=== PATIENT | male | born 1995 | race Caucasian/White ===

== ENCOUNTER 2020-02-10 23:08 | Observation (INO) | payer BC ==
--- OUTSIDE RECORDS SUMMARY | 2020-02-10 23:10 | XMS REPORT | Continuity of Care Document ---
:1995 [facility] t Address [address] [place] [address] Dr. Caldera [address] [place] [id number] Care Team Providers Name Role Phone Unavailable Unavailable Unavailable Problems This patient has no known problems. Allergies, Adverse Reactions, Alerts This patient has no known allergies or adverse reactions. Medications This patient has no known medications. Procedures This patient has no known procedures. Results This patient has no known results.
--- NOTE | 2020-02-11 00:07 | ER ---
Nurse's Notes [facility] Name: Jose A Vasquez Age: 24 yrs Sex: Male : 1995 Arrival Date: 02/10/2020 Time: 23:13 Bed 16 Private MD: Diagnosis: Cellulitis and acute lymphangitis of other parts of limb-lower extremity cellulitis, extensive;Fever, unspecified;Edema, unspecified;Elevated white blood cell count Presentation: 02/09 23:21 Chief complaint: Patient states: Left groin pain, and left foot swelling with redness, sg reports symptoms started around 0800 this morning after jumping up to the bed from a standing position. pt reports having swelling in the left foot that is chronic, has had ultrasound last year to r/o dvt, was negative. Coronavirus screen: Client denies travel out of the [place] in the last 14 days. At this time, the client does not indicate any symptoms associated with coronavirus-19. Ebola Screen: Patient negative for fever greater than or equal to 101.5 degrees Fahrenheit, and additional compatible Ebola Virus Disease symptoms Patient denies exposure to infectious person. Patient denies travel to an Ebola-affected area in the 21 days before illness onset. No symptoms or risks identified at this time. Initial Sepsis Screen: Does the patient meet any 2 criteria? No. Patient's initial sepsis screen is negative. Does the patient have a suspected source of infection? No. Patient's initial sepsis screen is negative. Risk Assessment: Do you want to hurt yourself or someone else? Patient reports no desire to harm self or others. Onset of symptoms was February 10, 2020. Care prior to arrival: None. Transition of care: patient was not received from another setting of care. 23:21 Acuity: PARAMJIT 3 sg 23:21 Method Of Arrival: Wheelchair sg Historical: - Allergies: 23:24 Anesthetics - Mary Type; sg - Home Meds: 23:24 None [Active]; sg - PMHx: 23:24 None; sg - PSHx: 23:24 None; sg - Immunization history:: Adult Immunizations up to date. - Social history:: Smoking status: Patient denies any tobacco usage or history of. - Family history:: not pertinent. Screenin:47 Abuse screen: Denies threats or abuse. Denies injuries from another. Nutritional mg2 screening: No deficits noted. Tuberculosis screening: No symptoms or risk factors identified. Fall Risk None identified. Assessment: 23:45 General: Appears in no apparent distress. comfortable, Behavior is calm, cooperative. mg2 Pain: Complains of pain in left leg. Neuro: Level of Consciousness is awake, alert, obeys commands, Oriented to person, place, time, situation. Cardiovascular: Capillary refill < 3 seconds Patient's skin is warm and dry. Respiratory: Airway is patent Respiratory effort is even, unlabored, Respiratory pattern is regular, symmetrical. GI: No signs and/or symptoms were reported involving the gastrointestinal system. : No signs and/or symptoms were reported regarding the genitourinary system. EENT: No signs and/or symptoms were reported regarding the EENT system. Derm: redness in the left leg. Musculoskeletal: Circulation, motion, and sensation intact. Capillary refill < 3 seconds, Swelling present in left leg. 02/10 00:25 Reassessment: patient advised for admission and he agreed. seen by hospitalist on duty. mg2 00:58 Reassessment: patient to be shifted to the floor after ultrasound. mg2 02:58 Reassessment: Patient is alert, oriented x 3, equal unlabored respirations, skin ea warm/dry/pink. Pt admitted to second floor, pt left ED via stretcher per ED nurse. Pt tolerating well. Vital Signs: 02/09 23:21 BP 107 / 68; Pulse 108; Resp 18; Pulse Ox 99% on R/A; Weight 112.94 kg (R); Height 6 sg ft. 0 in. (182.88 cm); 23:45 Pulse 117; Temp 101(O); mg2 02/10 01:10 BP 108 / 52; Pulse 108; Resp 18; Temp 101; Pulse Ox 97% on R/A; Pain 5/10; mg2 02/09 23:21 Body Mass Index 33.77 (112.94 kg, 182.88 cm) sg ED Course: 02/09 23:13 Patient arrived in ED. am2 23:17 Jacob Carroll MD is Attending Physician. evy 23:24 Triage completed. sg 23:25 Arm band placed on. sg 23:31 Andres Velez, JAYNE is Primary Nurse. mg2 23:47 Patient has correct armband on for positive identification. Door closed. mg2 23:47 No provider procedures requiring assistance completed. mg2 23:50 Inserted saline lock: 20 gauge in left antecubital area, using aseptic technique. Blood mg2 collected. 02/10 00:04 Kenyon Krishnamurthy DO is Hospitalizing Provider. evy 00:30 Chest Single View XRAY In Process Unspecified. EDMS 00:58 Patient admitted, IV remains in place. mg2 Administered Medications: 00:10 Drug: Tylenol 1000 mg Route: PO; mg2 01:09 Follow up: Response: No adverse reaction mg2 00:14 Drug: morphine 2 mg Route: IVP; Site: left antecubital; mg2 01:09 Follow up: Response: No adverse reaction; Marked relief of symptoms; RASS: Alert and mg2 Calm (0) 00:14 Drug: NS 0.9% 1000 ml Route: IV; Rate: 1 bolus; Site: left antecubital; mg2 01:08 Follow up: Response: No adverse reaction; IV Status: Completed infusion; IV Intake: mg2 1000ml 00:14 Drug: Zosyn 3.375 grams Route: IVPB; Infused Over: 60 mins; Site: left antecubital; mg2 01:08 Follow up: Response: No adverse reaction; IV Status: Completed infusion; IV Intake: mg2 100ml 00:15 Drug: Zofran (Ondansetron) 4 mg Route: IVP; Site: left antecubital; mg2 01:09 Follow up: Response: No adverse reaction mg2 00:25 Drug: Lovenox 100 mg Route: Sub-Q; Site: left lower abdomen; mg2 01:09 Follow up: Response: No adverse reaction mg2 00:25 Drug: Pepcid 20 mg Route: IVP; Site: left antecubital; mg2 01:09 Follow up: Response: No adverse reaction mg2 01:08 Drug: NS 0.9% 1000 ml Route: IV; Rate: 1 bolus; Site: left antecubital; mg2 01:08 Drug: vancoMYCIN 2 grams Route: IVPB; Rate: calculated rate; Site: left antecubital; mg2 01:15 Drug: morphine 2 mg Route: IVP; Site: left antecubital; mg2 Intake: 01:08 IV: 1000ml; Total: 1000ml. mg2 01:08 IV: 100ml; Total: 1100ml. mg2 Outcome: 00:06 Decision to Hospitalize by Provider. evy 02:21 Admitted to [facility] by tech, via wheelchair, room 429, with chart, Report mg2 called to JAYNE Arceo 02:21 Condition: stable 02:21 Instructed on the need for admit, Demonstrated understanding of instructions. 02:58 Patient left the ED. braxton Signatures: Dispatcher [employer] EDMS Deepak Mendoza, RN RN Jacob Parham MD MD cha Moreno, Amanda am2 Lorna Walsh RN RN ea Gardose, Michele, RN RN mg2
--- NOTE | 2020-02-11 00:07 | EDPHYS ---
Physician Documentation [facility] Name: Jose A Vasquez Age: 24 yrs Sex: Male : 1995 Arrival Date: 02/10/2020 Time: 23:13 Bed 16 Private MD: LUIS Physician Jacob Carroll HPI: 02/09 23:53 This 24 yrs old Male presents to ER via Wheelchair with complaints of Leg evy Pain, Foot Pain. 23:53 The patient presents with decreased range of motion, pain, swelling, tenderness. The evy complaints affect the lateral aspect of left calf, left lateral ankle, lateral aspect of left foot, medial aspect of left calf, left medial ankle, medial aspect of left foot, left rivas, anterior aspect of left ankle and dorsum of left foot. Context: The problem was sustained at home, resulted from an unknown cause, the patient can fully bear weight, the patient is able to ambulate. Onset: The symptoms/episode began/occurred this morning, today. Modifying factors: The symptoms are alleviated by elevating leg, remaining still, the symptoms are aggravated by movement, weight bearing, bending knee. Associated signs and symptoms: Pertinent positives: swelling, warmth, of the lateral aspect of left calf, left lateral ankle, lateral aspect of left foot, medial aspect of left calf, left medial ankle, medial aspect of left foot, left rivas, anterior aspect of left ankle and dorsum of left foot. Treatment prior to arrival includes: no previous treatment. Severity of symptoms: At their worst the symptoms were moderate, in the emergency department the symptoms are unchanged. The patient has not experienced similar symptoms in the past. Historical: - Allergies: 23:24 Anesthetics - Mary Type; sg - Home Meds: 23:24 None [Active]; sg - PMHx: 23:24 None; sg - PSHx: 23:24 None; sg - Immunization history:: Adult Immunizations up to date. - Social history:: Smoking status: Patient denies any tobacco usage or history of. - Family history:: not pertinent. ROS: 23:53 Eyes: Negative for injury, pain, redness, and discharge, ENT: Negative for injury, evy pain, and discharge, Neck: Negative for injury, pain, and swelling, Cardiovascular: Negative for chest pain, palpitations, and edema, Respiratory: Negative for shortness of breath, cough, wheezing, and pleuritic chest pain, Abdomen/GI: Negative for abdominal pain, nausea, vomiting, diarrhea, and constipation, Back: Negative for injury and pain, : Negative for injury, bleeding, discharge, and swelling, Neuro: Negative for headache, weakness, numbness, tingling, and seizure, Psych: Negative for depression, anxiety, suicide ideation, homicidal ideation, and hallucinations, Allergy/Immunology: Negative for hives, rash, and allergies, Endocrine: Negative for neck swelling, polydipsia, polyuria, polyphagia, and marked weight changes. 23:53 MS/extremity: Positive for erythema, pain, swelling, tenderness, of the left leg. Exam: 23:53 Constitutional: This is a well developed, well nourished patient who is awake, alert, evy and in no acute distress. Head/Face: Normocephalic, atraumatic. Eyes: Pupils equal round and reactive to light, extra-ocular motions intact. Lids and lashes normal. Conjunctiva and sclera are non-icteric and not injected. Cornea within normal limits. Periorbital areas with no swelling, redness, or edema. ENT: Nares patent. No nasal discharge, no septal abnormalities noted. Tympanic membranes are normal and external auditory canals are clear. Oropharynx with no redness, swelling, or masses, exudates, or evidence of obstruction, uvula midline. Mucous membranes moist. Neck: Trachea midline, no thyromegaly or masses palpated, and no cervical lymphadenopathy. Supple, full range of motion without nuchal rigidity, or vertebral point tenderness. No Meningismus. Chest/axilla: Normal chest wall appearance and motion. Nontender with no deformity. No lesions are appreciated. Respiratory: Lungs have equal breath sounds bilaterally, clear to auscultation and percussion. No rales, rhonchi or wheezes noted. No increased work of breathing, no retractions or nasal flaring. Abdomen/GI: Soft, non-tender, with normal bowel sounds. No distension or tympany. No guarding or rebound. No evidence of tenderness throughout. Back: No spinal tenderness. No costovertebral tenderness. Full range of motion. Male : Normal genitalia with no discharge or lesions. Neuro: Awake and alert, GCS 15, oriented to person, place, time, and situation. Cranial nerves II-XII grossly intact. Motor strength 5/5 in all extremities. Sensory grossly intact. Cerebellar exam normal. Normal gait. Psych: Awake, alert, with orientation to person, place and time. Behavior, mood, and affect are within normal limits. 23:53 Cardiovascular: Rate: tachycardic, Rhythm: regular, Pulses: Pulses are 4+ in bilateral radial, brachial, femoral, popliteal, posterior tibial and and dorsalis pedis arteries.. Heart sounds: normal, Edema: is not appreciated, JVD: is not appreciated. 23:53 Skin: Appearance: Color: normal in color, Temperature: normal temperature, Moisture: normal moisture, petechiae, not noted, ecchymosis, not noted, flushing, not noted, diaphoresis is not appreciated, cellulitis, that is moderate, confluent, well demarcated, on the lateral aspect of left calf, left lateral ankle, lateral aspect of left foot, medial aspect of left calf, left medial ankle, medial aspect of left foot, left rivas, anterior aspect of left ankle and dorsum of left foot. Vital Signs: 23:21 BP 107 / 68; Pulse 108; Resp 18; Pulse Ox 99% on R/A; Weight 112.94 kg (R); Height 6 sg ft. 0 in. (182.88 cm); 23:45 Pulse 117; Temp 101(O); mg2 02/10 01:10 BP 108 / 52; Pulse 108; Resp 18; Temp 101; Pulse Ox 97% on R/A; Pain 5/10; mg2 02/09 23:21 Body Mass Index 33.77 (112.94 kg, 182.88 cm) sg MDM: 02/09 23:17 Patient medically screened. evy 23:58 Differential diagnosis: abrasion. Data reviewed: vital signs, nurses notes, lab test evy result(s), radiologic studies, doppler, plain films. 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 rate is 117 beats/min, rhythm is regular, Pulse oximetry: on room air is 99 %. Test interpretation: by ED physician or midlevel provider: plain radiologic studies. Counseling: I had a detailed discussion with the patient and/or guardian regarding: the historical points, exam findings, and any diagnostic results supporting the discharge/admit diagnosis, lab results, the need for further work-up and treatment in the hospital. ED course: extensive cellulitis to left lower extremity, fever and pain. 02/09 23:53 Order name: CBC with Diff [facility] 02/09 23:53 Order name: Comprehensive Metabolic Panel; Complete Time: 00:55 [facility] 02/09 23:53 Order name: Blood Culture Adult (2) [facility] 02/09 23:53 Order name: Procalcitonin [facility] 02/09 23:53 Order name: Lactate; Complete Time: 00:55 [facility] 02/10 01:24 Order name: Manual Differential EDMS 02/09 23:53 Order name: US Extremity Venous W Compression Kirby [facility] 02/09 23:53 Order name: Chest Single View XRAY [facility] Administered Medications: 02/10 00:10 Drug: Tylenol 1000 mg Route: PO; mg2 01:09 Follow up: Response: No adverse reaction mg2 00:14 Drug: morphine 2 mg Route: IVP; Site: left antecubital; mg2 01:09 Follow up: Response: No adverse reaction; Marked relief of symptoms; RASS: Alert and mg2 Calm (0) 00:14 Drug: NS 0.9% 1000 ml Route: IV; Rate: 1 bolus; Site: left antecubital; mg2 01:08 Follow up: Response: No adverse reaction; IV Status: Completed infusion; IV Intake: mg2 1000ml 00:14 Drug: Zosyn 3.375 grams Route: IVPB; Infused Over: 60 mins; Site: left antecubital; mg2 01:08 Follow up: Response: No adverse reaction; IV Status: Completed infusion; IV Intake: mg2 100ml 00:15 Drug: Zofran (Ondansetron) 4 mg Route: IVP; Site: left antecubital; mg2 : Follow up: Response: No adverse reaction mg2 00:25 Drug: Lovenox 100 mg Route: Sub-Q; Site: left lower abdomen; mg2 01:09 Follow up: Response: No adverse reaction mg2 00:25 Drug: Pepcid 20 mg Route: IVP; Site: left antecubital; mg2 01: Follow up: Response: No adverse reaction mg2 01:08 Drug: NS 0.9% 1000 ml Route: IV; Rate: 1 bolus; Site: left antecubital; mg2 01:08 Drug: vancoMYCIN 2 grams Route: IVPB; Rate: calculated rate; Site: left antecubital; mg2 01:15 Drug: morphine 2 mg Route: IVP; Site: left antecubital; mg2 Disposition: 02/11/20 00:06 Hospitalization ordered by Kenyon Krishnamurthy for Inpatient Admission. Preliminary diagnosis are Cellulitis and acute lymphangitis of other parts of limb - lower extremity cellulitis, extensive, Fever, unspecified, Edema, unspecified, Elevated white blood cell count. - Bed requested for Telemetry/MedSurg (Inpatient). - Status is Inpatient Admission. ea - Condition is Fair. - Problem is new. - Symptoms have improved. Signatures: Dispatcher [employer] EDDeepak Thomas RN RN sg Anderson, Corey, MD MD cha Attema, Lee, ASSOCIATE FINANCIAL ANALYST-C ASSOCIATE FINANCIAL ANALYST-Cla1 Lorna Walsh RN RN ea Gardose, Michele, RN RN mg2 Corrections: (The following items were deleted from the chart) 00:13 00:06 Hospitalization Ordered by Kenyon Krishnamurthy DO for Inpatient Admission. Preliminary sg diagnosis is Cellulitis and acute lymphangitis of other parts of limb - lower extremity cellulitis, extensive; Fever, unspecified; Edema, unspecified. Bed requested for Telemetry/MedSurg (Inpatient). Status is Inpatient Admission. Condition is Fair. Problem is new. Symptoms have improved. [facility] 00:56 00:13 02/11/2020 00:06 Hospitalization Ordered by Kenyon Krishnamurthy DO for Inpatient evy Admission. Preliminary diagnosis is Cellulitis and acute lymphangitis of other parts of limb - lower extremity cellulitis, extensive; Fever, unspecified; Edema, unspecified. Bed requested for Telemetry/MedSurg (Inpatient). Status is Inpatient Admission. Condition is Fair. Problem is new. Symptoms have improved. 02:58 00:56 02/11/2020 00:06 Hospitalization Ordered by Kenyon Krishnamurthy DO for Inpatient ea Admission. Preliminary diagnosis is Cellulitis and acute lymphangitis of other parts of limb - lower extremity cellulitis, extensive; Fever, unspecified; Edema, unspecified; Elevated white blood cell count. Bed requested for Telemetry/MedSurg (Inpatient). Status is Inpatient Admission. Condition is Fair. Problem is new. Symptoms have improved. evy
[2020-02-11] MEDS ORDERED: ONDANSETRON 4 MG/2 ML VIAL ONE (00:13)
[2020-02-11] MEDS ORDERED: PIPER/TAZO/NS 3.375gm 3.375 GM/100 ML BAG ONE (00:13)
[2020-02-11] MEDS ORDERED: NA CHLORIDE 0.9% 250 ML ONE ×2 (00:13→00:28)
[2020-02-11] MEDS ORDERED: ACETAMINOPHEN 500 MG TAB ONE (00:13)
[2020-02-11] MEDS ORDERED: VANCOMYCIN 1 GM/VIAL ONE ×3 (00:13→00:28)
[2020-02-11] MEDS ORDERED: NA CHLORIDE 0.9% 1,000 ML ONE ×2 (00:13→00:28)
[2020-02-11] MEDS ORDERED: MORPHINE 2 MG/ML SYR ONE ×2 (00:13→01:24)
[2020-02-11] MEDS ORDERED: ENOXAPARIN 100 MG/ML SYR SQ ONE (00:28)
[2020-02-11] MEDS ORDERED: FAMOTIDINE 20 MG/2 ML VIAL IV ONE (00:29)
[2020-02-11 00:32] LABS: Absolute Lymphocytes (CBC) 0.8 K/uL (0.7-4.9); Basophils % 0.4 % (0-1.3); Hematocrit 43.8 % (39.6-49.0); Lymphocytes % 4.2 % (15.3-44.8); RBC Red Blood Cell Count 5.11 M/uL (4.33-5.43)
--- NOTE | 2020-02-11 00:38 | P.HP ---
Certification for Inpatient Patient admitted to: Observation With expected LOS: <2 Midnights Patient will require the following post-hospital care: None Practitioner: I am a practitioner with admitting privileges, knowledge of patient current condition, hospital course, and medical plan of care. Services: Services provided to patient in accordance with Admission requirements found in Title 42 Section 412.3 of the Code of Federal Regulations Patient History Date of Service: 02/11/20 Reason for admission: Left lower extremity cellulitis History of Present Illness: 24-year-old male with no significant medical history other then chronic left lower extremity swelling presents emergency department for left lower extremity pain, redness, swelling. Patient reports that this morning he noticed that he is having some pain in his left groin knee. Patient then noticed that he is beginning to develop some redness over the dorsum of his left foot and his left calf/rivas area. Patient presented to the emergency department for evaluation of redness, swelling, pain. Patient reports that he has had the swelling to left lower extremity for approximately 2 years but it has gotten worse over the course of the last day. Patient reports having ultrasound approximately 1 year ago to rule out DVT which was negative. Patient was febrile, tachycardic in the emergency department. ED provider wishes to admit patient for further evaluation and management. When I saw the patient in the emergency department he was awake, alert, oriented x4 Patient was tachycardic around 110 with fever of 101 but blood pressure was normal. No signs of end-organ damage at this time. 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 moist/pink Neck: Supple Cardiovascular: Normal pulses, Regular rate/rhythm, Normal S1 S2 Capillary refill: <2 Seconds Gastrointestinal: Normal bowel sounds, Soft and benign Musculoskeletal: Swelling (Left lower extremity), Erythema, Tenderness Integumentary: Erythema, Warmth (Left lower extremity) Neurological: Normal gait, Normal speech, Normal strength at 5/5 x4 extr, Normal tone, Sensation intact Assessment and Plan - Plan Assessment Sepsis secondary to left lower extremity cellulitis Plan Sepsis secondary to left lower extremity cellulitis: Patient febrile and tachycardic without hypotension or signs of end-organ damage. Patient start on broad-spectrum antibiotics in the emergency department and given IV fluid bolus, blood cultures obtained. Ultrasound left lower extremity obtained in the emergency department which was negative. Will repeat CBC, basic with morning labs. DVT prophylaxis Lovenox 40 mg subcutaneous once daily. Anticipate clinical improvement next 24-48 hr. Discharge Plan: Home Plan to discharge in: 48 Hours - Advance Directives Does patient have a Living Will: No Does patient have a Durable POA for Healthcare: No - Code Status/Comfort Care Code Status Assessed: Yes (Patient is full code) Critical Care: No Time Spent Managing Pts Care (In Minutes): 55
[2020-02-11 00:39] LABS: Albumin 3.7 g/dL (3.4-5.0); Bilirubin Total 1.1 mg/dL (0.2-1.0); Potassium 3.8 mmol/L (3.5-5.1); Protein, Total 6.8 g/dL (6.4-8.2)
[2020-02-11 01:23] LABS: Blood Morphology Comment NOT SEEN (NOT SEEN); Platelet Estimate ADEQ
[2020-02-11] MEDS ORDERED: POTASSIUM CL SA 10 MEQ TAB PO ONE (02:52)
[2020-02-11] MEDS ORDERED: TRAMADOL HCL 50 MG TAB PO PRN (02:52)
[2020-02-11] MEDS ORDERED: ACETAMINOPHEN 500 MG TAB PO PRN (02:52)
[2020-02-11] MEDS ORDERED: ONDANSETRON 4 MG/2 ML VIAL IV PRN (02:52)
[2020-02-11] MEDS: NA CHLORIDE 0.9% 1,000 ML IV SCH ×3 (02:52→20:51)
[2020-02-11] MEDS ORDERED: VANCOMYCIN/NS 1 gm 1 GM/250 ML BAG IVPB SCH (03:00)
[2020-02-11 03:06] VITALS: BMI 33.5
[2020-02-11] MEDS: HYDROCODONE/APAP 7.5/325 MG TAB PO PRN ×4 (03:07→20:32)
--- NOTE | 2020-02-11 05:37 | P.INFCA ---
Sepsis Focused Assessment - Focused Assessment Complete? Sepsis Focused Assessment Completed?: Yes - Sepsis Screen Result Severe Sepsis: Negative Septic Shock: Negative - Evaluation Current stage of sepsis: Ruled out Reason for ruling out sepsis: Tachycardia/fever - Vital Signs Reviewed: Yes Respiratory Rate: 18 O2 Sat by Pulse Oximetry: 98 - Examination Time exam was performed: 04:00 Heart: Regular rate/rhythm Lungs: Clear bilaterally Peripheral pulses: 3+ Normal Peripheral pulse location: Radial Capillary refill: <2 Seconds Skin examination: Normal turgor
--- NOTE | 2020-02-11 06:57 | RAD REPORT ---
EXAM DESCRIPTION: US - Extrem Venous W Compress Kirby - 02/11/2020 2:41 am CLINICAL HISTORY: Pain;Swelling COMPARISON: None. TECHNIQUE: Real-time sonographic evaluation of the bilateral lower extremity common femoral, superfi cial femoral, popliteal and posterior tibial veins was performed. FINDINGS: Normal compressibility, flow augmentation, phasic flow and spontaneous flow are identified in the left and right lower extremity common femoral, superficial femoral, popliteal and posterior t ibial veins. No intraluminal filling defects seen. IMPRESSION: No DVT in either lower extremity.
--- NOTE | 2020-02-11 07:16 | RAD REPORT ---
EXAM DESCRIPTION: RAD - Chest Single View - 02/11/2020 12:29 am CLINICAL HISTORY: FEVER COMPARISON: None TECHNIQUE: AP portable chest image was obtained 02/11/2020 12:29 am . FINDINGS: Lungs are clear. Heart and vasculature are normal. No measurable pleural effusion and no p neumothorax. No acute bony abnormality seen. No acute aortic findings suspected. IMPRESSION: No acute cardiopulmonary process.
[2020-02-11] MEDS ORDERED: CEFEPIME 1 GM/VIAL IV SCH (09:00)
[2020-02-11 09:09] LABS: Thyroid Stimulating Hormone 1.5 uIU/mL (0.360-3.740)
--- NOTE | 2020-02-11 09:23 | RAD REPORT ---
EXAM DESCRIPTION: RAD - Tib Fib Left - 02/11/2020 9:07 am CLINICAL HISTORY: Cellulitis, leg pain, possible foreign body COMPARISON: None. FINDINGS: No fracture is identified. There is no dislocation or periosteal reaction noted. No acute or suspicious bony finding. No air or foreign body. Soft tissue edema is evident. IMPRESSION: No air or foreign body in the soft tissues.
--- NOTE | 2020-02-11 09:24 | RAD REPORT ---
EXAM DESCRIPTION: RAD - Foot Left 3 View - 02/11/2020 9:08 am CLINICAL HISTORY: cellulitis rule out foreign body COMPARISON: No comparisons FINDINGS: No fracture, dislocation or periosteal reaction. No acute or destructive bony process. Prominent soft tissue swelling over the dorsum of the foot with less prominent soft tissue swelling e lsewhere. No air or foreign body. IMPRESSION: Left foot soft tissue swelling with no foreign body.
--- NOTE | 2020-02-11 09:24 | RAD REPORT ---
EXAM DESCRIPTION: RAD - Ankle Left 2 View - 02/11/2020 9:07 am CLINICAL HISTORY: cellulitis rule out foreign body COMPARISON: No comparisons FINDINGS: No fracture, dislocation or periosteal reaction. No joint effusion seen. No joint space na rrowing. Soft tissue swelling is present. No air or foreign body. IMPRESSION: Soft tissue swelling with no foreign body left ankle.
[2020-02-11] MEDS: ENOXAPARIN 40 MG/0.4 ML SQ SCH (09:35)
[2020-02-11] MEDS: CEFEPIME/SWI 1gm 10 ML IV SCH ×2 (09:35→20:31)
[2020-02-11] MEDS: VANCOMYCIN 2 GM in NA CHLORIDE 0.9% 500 ML IVPB SCH (13:54)
[2020-02-12] MEDS: VANCOMYCIN 2 GM in NA CHLORIDE 0.9% 500 ML IVPB SCH ×2 (00:21→13:14)
[2020-02-12] MEDS: HYDROCODONE/APAP 7.5/325 MG TAB PO PRN ×2 (00:21→05:10)
[2020-02-12 03:59] LABS: Absolute Lymphocytes (CBC) 1.4 K/uL (0.7-4.9); Basophils % 0.3 % (0-1.3); Lymphocytes % 17.1 % (15.3-44.8); MPV 7.8 fL (7.6-11.3); RBC Red Blood Cell Count 4.39 M/uL (4.33-5.43)
[2020-02-12 04:34] LABS: BUN Blood Urea Nitrogen 12 mg/dL (7-18); Bicarbonate 28 mmol/L (21-32); Glucose Level 100 mg/dL (74-106); Potassium 4.3 mmol/L (3.5-5.1); Sodium Level 140 mmol/L (136-145)
[2020-02-12] MEDS: ENOXAPARIN 40 MG/0.4 ML SQ SCH (07:46)
[2020-02-12] MEDS: CEFEPIME/SWI 1gm 10 ML IV SCH ×2 (07:47→21:34)
[2020-02-12 08:57] VITALS: O2SAT 99
--- NOTE | 2020-02-12 13:08 | P.PN ---
Subjective Date of Service: 02/12/20 Primary Care Provider: None Chief Complaint: Left lower extremity cellulitis Subjective: Improving (Improved. Patient had fever yesterday at 101.8) Physical Examination - Vital Signs Temperature: 98.6 F Blood Pressure: 121/59 Pulse: 86 Respirations: 18 Pulse Ox (%): 98 - Physical Exam General: Alert, In no apparent distress, Oriented x3, Cooperative HEENT: Atraumatic Neck: Supple Respiratory: Clear to auscultation bilaterally, Normal air movement Cardiovascular: Normal pulses, Regular rate/rhythm Integumentary: Other (Erythema and swelling to the left lower extremity improved. Still noticeable swelling to the foot and ankle region. Some pain with walking.) Neurological: Normal speech, Normal strength at 5/5 x4 extr, Normal tone, Normal affect - Studies Medications List Reviewed: Yes Assessment & Plan Discharge Plan: Home Plan to discharge in: 24 Hours Physician Review Additional Text: Assessment Left lower extremity cellulitis Plan Left lower extremity cellulitis: Sepsis ruled out. Blood cultures negative. Will obtain echocardiogram today. Venous Doppler negative. Continue IV antibiotic therapy. Will continue to reassess. Encourage ambulation. Encourage to elevate leg when sitting or lying. Would like to see patient without fever for at least 24 hr to consider discharge. Will reassess later. If significantly improved will consider discharge later today. Time Spent Managing Pts Care (In Minutes): 55
--- NOTE | 2020-02-12 14:43 | ECHO ---
HEIGHT: 6 ft 0 in WEIGHT: 247 lb 0 oz DATE OF STUDY: 02/12/[address]: Kenyon Krishnamurthy DO 2-DIMENSIONAL: YES M.MODE: YES DOPPLER: YES COLOR FLOW: YES TDS: PORTABLE: DEFINITY: BUBBLE STUDY: DIAGNOSIS: CELLULITIS ETIOLOGY UNKNOWN, RULE OUT INFECTION CARDIAC HISTORY: CATHERIZATION: NO SURGERY: NO PROSTHETIC VALVE: NO PACEMAKER: NO MEASUREMENTS (cm) DIASTOLIC (NORMALS) SYSTOLIC (NORMALS) IVSd 1.0 (0.6-1.2) LA Diam 3.5 (1.9-4.0) LVEF 67% LVIDd 4.6 (3.5-5.7) LVIDs 2.9 (2.0-3.5) %FS 37% LVPWd 1.0 (0.6-1.2) Ao Diam 2.9 (2.0-3.7) 2 DIMENSIONAL ASSESSMENT: RIGHT ATRIUM: NORMAL LEFT ATRIUM: NORMAL RIGHT VENTRICLE: NORMAL LEFT VENTRICLE: NORMAL TRICUSPID VALVE: TRACE TRICUSPID REGURGITATION MITRAL VALVE: MILD MITRAL REGURGITATION PULMONIC VALVE: NORMAL AORTIC VALVE: NORMAL PERICARDIAL EFFUSION: NONE AORTIC ROOT: NORMAL LEFT VENTRICULAR WALL MOTION: NORMAL DOPPLER/COLOR FLOW: NORMAL COMMENTS: NORMAL LEFT VENTRICULAR EJECTION FRACTION 55-60% WITH NORMALWALL MOTION.NORAML DASTOLIC FUNCTION. TRACE TRICUSPID REGURGITATION, TRACE MITRAL REGURGITATION. NOL CLEAR VEGETATIONS ARE SEEN ON THIS EXAM. CONSIDER TRANSESOPHEGEAL ECHOCARDIOGRAM IF CLINICALLY INDICATED. TECHNOLOGIST: TIP MONIQUE
--- NOTE | 2020-02-12 15:31 | P.CNS ---
Date of Consult: 02/12/20 Subjective: Patient is a 24-year-old male with no significant past medical history other than chronic left lower extremity swelling on and off for the past 2 years. Patient reports waking up Sunday morning with pain/tightness to left thigh and swelling to left lower extremity. Later that day he noticed redness and increased pain and decided to come to the ED. Denies trauma/injury. Patient found to have left lower extremity cellulitis which I have been consulted for. 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 - Family History Family History: Reviewed- Non-Contributory - Social History Smoking Status: Never smoker Alcohol use: Yes CD- Drugs: No Caffeine use: No Place of Residence: Home Allergies Anesthetics - Mary Type- Parabens Allergy (Verified 02/11/20 00:37) Hives/Rash Active Medications Acetaminophen (Tylenol -Extra Strength) 1,000 mg PO Q4HP PRN PRN Reason: TEMP > 101' F Stop: 03/12/20 02:53 Hydrocodone Bitart/Acetaminophen ([place] 7.5/325 Mg) 1 tab PO Q4H PRN PRN Reason: Pain scale 8-10 (Severe) Stop: 03/12/20 02:53 Last Admin: 02/12/20 05:10 Dose: 1 tab Documented by: Enoxaparin Sodium (Lovenox 40 Mg Inj) 40 mg SQ DAILY [facility] Stop: 03/12/20 09:01 Last Admin: 02/12/20 07:46 Dose: 40 mg Documented by: Cefepime HCl (Maxipime 1 Gm/10 Ml Ivp) 10 mls @ 200 mls/hr IV Q12HR [facility]ON Stop: 03/12/20 09:01 Last Admin: 02/12/20 07:47 Dose: 10 mls Documented by: Vancomycin HCl 2 gm/ Sodium (Chloride) 500 mls @ 250 mls/hr IVPB Q12H [facility]LD[facility] Stop: 03/12/20 13:01 Last Admin: 02/12/20 13:14 Dose: 500 mls Documented by: Ondansetron HCl (Zofran) 4 mg IV Q6HP PRN PRN Reason: NAUSEA / VOMITING Stop: 03/12/20 02:53 Sodium Chloride (Normal Saline Flush) 10 ml IV BID SHELDON Stop: 03/12/20 09:01 Last Admin: 02/12/20 07:47 Dose: 10 ml Documented by: Tramadol HCl (Ultram) 50 mg PO Q6H PRN PRN Reason: Pain scale 5-7 (Moderate) Stop: 03/12/20 02:53 Last Admin: 02/11/20 05:37 Dose: 50 mg Documented by: ROS: CV: Denies chest pain RESP: Denies shortness of breath : Denies dysuria GI: Denies nausea and diarrhea Extremities: Reports left lower extremity with swelling and erythema for 3 days Objective: Temp Pulse Resp BP Pulse Ox 98.6 F 86 18 121/59 L 98 02/12/20 13:08 02/12/20 13:08 02/12/20 13:08 02/12/20 13:08 02/12/20 13:08 Labs: Sodium 140, potassium 4.3, BUN 12, creatinine 0.99, the Dc 8.4, hemoglobin 13.3, hematocrit 38 EXAM DESCRIPTION: RAD - Foot Left 3 View - 02/11/2020 9:08 am CLINICAL HISTORY: cellulitis rule out foreign body COMPARISON: No comparisons FINDINGS: No fracture, dislocation or periosteal reaction. No acute or destructive bony process. Prominent soft tissue swelling over the dorsum of the foot with less prominent soft tissue swelling elsewhere. No air or foreign body. IMPRESSION: Left foot soft tissue swelling with no foreign body. EXAM DESCRIPTION: RAD - Ankle Left 2 View - 02/11/2020 9:07 am CLINICAL HISTORY: cellulitis rule out foreign body COMPARISON: No comparisons FINDINGS: No fracture, dislocation or periosteal reaction. No joint effusion seen. No joint space narrowing. Soft tissue swelling is present. No air or foreign body. IMPRESSION: Soft tissue swelling with no foreign body left ankle. EXAM DESCRIPTION: RAD - Tib Fib Left - 02/11/2020 9:07 am CLINICAL HISTORY: Cellulitis, leg pain, possible foreign body COMPARISON: None. FINDINGS: No fracture is identified. There is no dislocation or periosteal reaction noted. No acute or suspicious bony finding. No air or foreign body. Soft tissue edema is evident. IMPRESSION: No air or foreign body in the soft tissues. ROS: General: Awake, alert and oriented CV: S1,S2 RESP: Good breath sounds ABD: Nontender, bowel sounds present Extremities: Left lower extremity swelling, warmth and erythema. No open wounds Assessment and plan: Leukocytosis Left lower extremity cellulitis Procalcitonin elevated Blood cultures show no growth to date Doppler negative for DVT Maxipime and Vanc day 2, recommend to continue IV for now Educated the patient to keep legs elevated Will continue to monitor Thank you for consult Patient discussed with Dr. Muller
[2020-02-13] MEDS: VANCOMYCIN 2 GM in NA CHLORIDE 0.9% 500 ML IVPB SCH ×3 (01:13→14:24)
[2020-02-13 04:15] LABS: Absolute Lymphocytes (CBC) 1.8 K/uL (0.7-4.9); Basophils % 0.3 % (0-1.3); Hematocrit 38.8 % (39.6-49.0); Lymphocytes % 30.2 % (15.3-44.8); MPV 7.9 fL (7.6-11.3); RBC Red Blood Cell Count 4.46 M/uL (4.33-5.43)
[2020-02-13 04:22] LABS: BUN Blood Urea Nitrogen 14 mg/dL (7-18); Bicarbonate 24 mmol/L (21-32); Glucose Level 97 mg/dL (74-106); Potassium 3.6 mmol/L (3.5-5.1); Sodium Level 143 mmol/L (136-145)
[2020-02-13] MEDS ORDERED: POTASSIUM CL SA 10 MEQ TAB PO ONE (05:48)
--- NOTE | 2020-02-13 08:48 | P.PN ---
Date of Service: 02/13/20 Subjective: Patient is a 24-year-old male with no significant past medical history other than chronic left lower extremity swelling on and off for the past 2 years. Patient reports waking up Sunday morning with pain/tightness to left thigh and swelling to left lower extremity. Later that day he noticed redness and increased pain and decided to come to the ED. Denies trauma/injury. Patient found to have left lower extremity cellulitis which I have been consulted for. Patient examined at bedside. Erythema and warmth to left lower extremity greatly improved. Still with swelling and pain with ambulation. Denies fever, nausea and diarrhea. Objective: Temp Pulse Resp BP Pulse Ox 98.6 F 86 18 121/59 L 98 02/12/20 13:08 02/12/20 13:08 02/12/20 13:08 02/12/20 13:08 02/12/20 13:08 Labs: Sodium 143, potassium 3.6, BUN 14, creatinine 0.86, WBC 5.9, hemoglobin 13.2, hematocrit 38.8 EXAM DESCRIPTION: RAD - Foot Left 3 View - 02/11/2020 9:08 am CLINICAL HISTORY: cellulitis rule out foreign body COMPARISON: No comparisons FINDINGS: No fracture, dislocation or periosteal reaction. No acute or destructive bony process. Prominent soft tissue swelling over the dorsum of the foot with less prominent soft tissue swelling elsewhere. No air or foreign body. IMPRESSION: Left foot soft tissue swelling with no foreign body. EXAM DESCRIPTION: RAD - Ankle Left 2 View - 02/11/2020 9:07 am CLINICAL HISTORY: cellulitis rule out foreign body COMPARISON: No comparisons FINDINGS: No fracture, dislocation or periosteal reaction. No joint effusion seen. No joint space narrowing. Soft tissue swelling is present. No air or foreign body. IMPRESSION: Soft tissue swelling with no foreign body left ankle. EXAM DESCRIPTION: RAD - Tib Fib Left - 02/11/2020 9:07 am CLINICAL HISTORY: Cellulitis, leg pain, possible foreign body COMPARISON: None. FINDINGS: No fracture is identified. There is no dislocation or periosteal reaction noted. No acute or suspicious bony finding. No air or foreign body. Soft tissue edema is evident. IMPRESSION: No air or foreign body in the soft tissues. ROS: General: Awake, alert and oriented CV: S1,S2 RESP: Good breath sounds ABD: Nontender, bowel sounds present Extremities: Left lower extremity swelling, warmth and small amount of erythema. No open wounds Assessment and plan: Leukocytosis resolved Left lower extremity cellulitis, improved Procalcitonin elevated Blood cultures show no growth to date Doppler negative for DVT Maxipime and Vanc day 3 Upon discharge can switch to Augmentin 875/125mg PO BID Patient will need total of 2 weeks of antibiotics Educated the patient to keep legs elevated Will continue to monitor Patient discussed with Dr. Muller
[2020-02-13] MEDS: CEFEPIME/SWI 1gm 10 ML IV SCH (09:46)
[2020-02-13] MEDS: ENOXAPARIN 40 MG/0.4 ML SQ SCH (09:47)
--- NOTE | 2020-02-13 11:26 | P.DS ---
Admission Date: 02/11/20 Discharge Date: 02/13/20 Primary Care Provider: None Disposition: ROUTINE DISCHARGE Discharge Condition: GOOD Reason for Admission: Left lower extremity cellulitis Consultations: Infectious disease-Dr. Muller Procedures: Xray: FINDINGS: No fracture is identified. There is no dislocation or periosteal reaction noted. No acute or suspicious bony finding. No air or foreign body. Soft tissue edema is evident. IMPRESSION: No air or foreign body in the soft tissues. FINDINGS: No fracture, dislocation or periosteal reaction. No joint effusion seen. No joint space narrowing. Soft tissue swelling is present. No air or foreign body. IMPRESSION: Soft tissue swelling with no foreign body left ankle.FINDINGS: No fracture, dislocation or periosteal reaction. No acute or destructive bony process. Prominent soft tissue swelling over the dorsum of the foot with less prominent soft tissue swelling elsewhere. No air or foreign body. IMPRESSION: Left foot soft tissue swelling with no foreign body. ECHO: EF 67% LEFT VENTRICULAR WALL MOTION: NORMAL DOPPLER/COLOR FLOW: NORMAL COMMENTS: NORMAL LEFT VENTRICULAR EJECTION FRACTION 55-60% WITH NORMALWALL MOTION. NORMAL DIASTOLIC FUNCTION. TRACE TRICUSPID REGURGITATION, TRACE MITRAL REGURGITATION. NO CLEAR VEGETATIONS ARE SEEN ON THIS EXAM. CONSIDER TRANSESOPHEGEAL ECHOCARDIOGRAM IF CLINICALLY INDICATED. Venous doppler: FINDINGS: Normal compressibility, flow augmentation, phasic flow and spontaneous flow are identified in the left and right lower extremity common femoral, superficial femoral, popliteal and posterior tibial veins. No intraluminal filling defects seen. IMPRESSION: No DVT in either lower extremity. Medical Problem List: Left lower extremity cellulitis involving the foot, ankle and left lower extremity below the knee Chronic left lower extremity edema suspect venous insufficiency Echo showing trace tricuspid regurgitation, trace mitral regurgitation Brief History of Present Illness: 24-year-old male presented to emergency room with left lower extremity cellulitis. Patient reports symptoms over the past several days and worsening. Patient had reported chronic swelling to the left lower extremity over the past several years. Patient evaluated. White count elevated. Pro calcitonin elevated. Significant erythema, swelling noted. Patient admitted for further evaluation and treatment. Hospital Course: Patient presented with left lower extremity cellulitis involving the foot, ankle, and left lower extremity below the knee. White count and pro calcitonin elevated. Patient required hospitalization with IV antibiotic therapy. His condition slowly improved. Infectious Disease was consulted due to multiple areas affected. Infectious Disease recommended to continue IV antibiotic therapy for at least 12-48 hours. Patient has been afebrile for more than 24 hr. Swelling, erythema has significantly improved. At discharge patient will continue with Augmentin 875 mg 1 pill twice daily for 10 days. Recommend to elevate leg when sitting or lying. Patient will be given crutches to help ambulate for the next couple of days. Recommend to monitor for any skin changes. If worse patient may require IV antibiotic therapy in the future. Will provide education on cellulitis and skin care. Recommend follow up with a PCP to establish care and follow up this hospitalization. Patient with chronic left lower extremity edema for several years. Patient may have some venous insufficiency. Recommend further evaluation with vein specialist in the near future. This can be done with the help of PCP. Echocardiogram shows trace tricuspid regurgitation and mitral regurgitation. This can be followed as an outpatient. Vital Signs/Physical Exam: Temp Pulse Resp BP Pulse Ox 98.6 F 88 16 120/67 99 02/13/20 08:00 02/13/20 08:00 02/13/20 08:00 02/13/20 08:00 02/13/20 08:00 General: Alert, In no apparent distress, Oriented x3, Cooperative HEENT: Atraumatic Neck: Supple Respiratory: Clear to auscultation bilaterally, Normal air movement Cardiovascular: Normal pulses, Regular rate/rhythm Gastrointestinal: Normal bowel sounds, Soft and benign, Non-distended, No tenderness, No masses, No rebound, No guarding Musculoskeletal: No erythema, No tenderness, No warmth Integumentary: Other (Erythema almost resolved. Some mild swelling to the foot. Swelling warmth significantly improved to the lower extremity.) Neurological: Normal speech, Normal strength at 5/5 x4 extr, Normal tone, Normal affect Laboratory Data at Discharge: WBC 5.9 K/uL (4.3-10.9) D 02/13/20 03:16 Hgb 13.2 g/dL (13.6-17.9) L 02/13/20 03:16 Hct 38.8 % (39.6-49.0) L 02/13/20 03:16 Plt Count 177 K/uL (152-406) D 02/13/20 03:16 Sodium 143 mmol/L (136-145) 02/13/20 03:16 Potassium 3.6 mmol/L (3.5-5.1) 02/13/20 03:16 BUN 14 mg/dL (7-18) 02/13/20 03:16 Creatinine 0.86 mg/dL (0.55-1.3) 02/13/20 03:16 Glucose 97 mg/dL (74-106) 02/13/20 03:16 Total Bilirubin 1.1 mg/dL (0.2-1.0) H 02/10/20 23:50 AST 10 U/L (15-37) L 02/10/20 23:50 ALT 30 U/L (12-78) 02/10/20 23:50 Alkaline Phosphatase 45 U/L (45-117) 02/10/20 23:50 Home Medications: Amoxicillin/Potassium Clav [Augmentin 875-125 Tablet] 1 each PO BID #20 tablet 02/13/20 New Medications: Amoxicillin/Potassium Clav [Augmentin 875-125 Tablet] 1 each PO BID #20 tablet Patient Discharge Instructions: 1. Recommend follow up with a PCP to establish care. 2. Patient presented with left lower extremity cellulitis involving the foot, ankle, and left lower extremity below the knee. White count and pro calcitonin elevated. Patient required hospitalization with IV antibiotic ther apy. His condition slowly improved. Infectious Disease was consulted due to multiple areas affected. Infectious Disease recommended to continue IV antibiotic therapy for at least 12-48 hours. Patient has been afebrile for more than 24 hr. Swelling, erythema has significantly improved. At discharge patient will continue with Augmentin 875 mg 1 pill twice daily for 10 days. Recommend to elevate leg when sitting or lying. Patient will be given crutches to help ambulate for the next couple of days. Recommend to monitor for any skin changes. If worse patient may require IV antibiotic therapy in the future. Will provide education on cellulitis and skin care. Recommend follow up with a PCP to establish care and follow up this hospitalization. 3. Patient with chronic left lower extremity edema for several years. Patient may have some venous insufficiency. Recommend further evaluation with vein specialist in the near future. This can be done with the help of PCP. Echocardiogram shows trace tricuspid regurgitation and mitral regurgitation. This can be followed as an outpatient. Diet: AHA Activity: Ad angela Time spent managing pt's care (in minutes): 55
[2020-02-13 16:56] VITALS: BP 144/66; TEMP 98.5
== END 2020-02-13 16:50 | disposition home or self-care (01) ==
LOC: ER 23:08 → ERHOLD 02-11 00:36 → 4TH 02-11 02:22
PROVIDERS: ADMIT Family Medicine; ATTEND Family Medicine
DX: L03.116 Cellulitis of left lower limb (principal); R60.0 Localized edema; I34.0 Nonrheumatic mitral (valve) insufficiency; I07.1 Rheumatic tricuspid insufficiency; Z20.828 Contact with and (suspected) exposure to other viral communicable diseases; M79.89 Other specified soft tissue disorders
CPT/HCPCS: 96365; 93306; 87040 ×2; 85025 ×3; 80048 ×2; 36415 ×2; 83605; 84443; 80202; 83036; 84439; 80053; 84145; 71045; 73630; 73590; 73600; 93970; 96375; 96372; 99285; U0002; J1650 ×4; J3370 ×5; J2543; J2270 ×2; J0692 ×3; J7050 ×2; J7040 ×3; J7030 ×4; J2405; G0378 ×4